=== PATIENT | female | born 1935 | race Caucasian/White ===

== ENCOUNTER 2022-02-22 12:11 | Emergency (ER) | payer MEDICARE ==
[~2022-02-22] VITALS: Ht 167.6 cm; Wt 63.5 kg
[2022-02-22 13:12] VITALS: BP_SYST 104
[2022-02-22] MEDS ORDERED: cefTRIAXone 1 GM VIAL ONE (13:31)
[2022-02-22] MEDS: cefTRIAXone 1 GM in D5W 50 ML IV ONE ×2 (13:44→17:44)
[2022-02-22] MEDS: NACL 0.9% 1,000 ML IV ONE ×2 (13:50→16:15)
[2022-02-22 13:57] LABS: BASOPHILS # (AUTO) 0.1 K/uL (0.0-0.2); BASOPHILS % (AUTO) 0.7 % (0.0-2.0); EOSINOPHILS % (AUTO) 0.1 % (0.0-4.0); HEMATOCRIT 35.3 % (36-48); HEMOGLOBIN 11.8 g/dL (12.0-16.0); LYMPHOCYTES # (AUTO) 0.4 K/uL (1.0-5.5); LYMPHOCYTES % (AUTO) 3.3 % (20.5-51.5); MEAN CORPUSCULAR HEMOGLOBIN 28 pg (27-31); MEAN CORPUSCULAR HGB CONC 34 % (32-36); MEAN CORPUSCULAR VOLUME 85 fL (79.0-98.0); MONOCYTES # (AUTO) 0.5 K/uL (0.0-1.0); MONOCYTES % (AUTO) 3.8 % (1.7-9.3); NEUTROPHILS # (AUTO) 12.4 K/uL (1.8-7.7); NEUTROPHILS % (AUTO) 92.1 % (40.0-70.0); PLATELET COUNT (AUTO) 327 K/uL (130-430); RED BLOOD CELL COUNT(AUTO) 4.17 MIL/uL (4.2-6.2); RED CELL DISTRIBUTION WIDTH 14.6 % (9.0-15.0); WHITE BLOOD COUNT (AUTO) 13.5 K/uL (4.8-10.8)
[2022-02-22 14:22] LABS: ANION GAP 4 (5-15); CALCIUM 8.7 mg/dL (8.4-11.0); CHLORIDE 100 mmol/L (98-107); CREATININE 1.18 mg/dL (0.55-1.30); GLUCOSE 237 mg/dL (70-99); UREA NITROGEN, BLOOD 8 mg/dL (8-21)
[2022-02-22 14:27] LABS: ALANINE AMINOTRANSFERASE 13 U/L (12-78); ALBUMIN 2.7 g/dL (3.4-4.8); ASPARTATE AMINOTRANSFERASE 17 U/L (10-37); TOTAL BILIRUBIN 0.9 mg/dL (0.0-1.0)
[2022-02-22] MEDS: POTASSIUM CHLORIDE 20 MEQ/PKT PACKET PO ONE (15:25)
[2022-02-22] MEDS: KCL 20 mEq in 100 mL (PREMIX) 100 ML IV ONE (15:25)
[2022-02-22 15:52] LABS: BILIRUBIN,URINE 1+ (NEGATIVE); BLOOD, URINE 2+ (NEGATIVE); GLUCOSE,URINE 1+ (NEGATIVE); KETONES,URINE TRACE (NEGATIVE); LEUKOCYTE ESTERASE ,URINE 2+ (NEGATIVE); NITRITE, URINE NEGATIVE (NEGATIVE); PROTEIN URINE 1+ (NEGATIVE)
[2022-02-22 15:59] LABS: CLARITY/URINE HAZY (CLEAR); COLOR,URINE YELLOW (YELLOW)
[2022-02-22 16:06] LABS: BACTERIA,URINE MANY /HPF (None Seen); WBC,URINE 50-80 /HPF (0-3)
[2022-02-22 16:07] LABS: COARSE GRANULAR CASTS,URINE 0-10 /LPF (None Seen); HYALINE CASTS, URINE 0-10 /LPF (None Seen); MUCUS,URINE 1+ /LPF (None Seen)
[2022-02-22] MEDS: LORazepam 2 MG/ML VIAL IVP ONE (17:21)
[2022-02-22] MEDS: dilTIAZem HCL IVP 5 MG/ML VIAL IVP ONE ×2 (18:17→21:18)
[2022-02-22] MEDS: DILTIAZEM HCL 30 MG TABLET PO ONE (20:59)
[2022-02-23 03:30] VITALS: BP_SYST 126
== END 2022-02-23 03:30 | disposition short-term general hospital (02) ==
LOC: SED 12:11
DX: G93.41 Metabolic encephalopathy (principal); J44.9 Chronic obstructive pulmonary disease, unspecified; E87.5 Hyperkalemia; N39.0 Urinary tract infection, site not specified; I48.20 Chronic atrial fibrillation, unspecified; Z20.822 Contact with and (suspected) exposure to COVID-19
CPT/HCPCS: 99285; 96365; 70450; 71045; 96361; 96375; 87426; 80053; 81000; 83880; 85025; 87040; 87086; 84484; 36415; 93005; 76376; 96376; 83605; 87804 ×2; J0696; J3490; J2060; J3480; J7030